=== PATIENT | male | born 1950 | race Caucasian/White ===

== ENCOUNTER 2017-11-28 13:31 | Outpatient (CLI) | payer MEDICARE, BC ==
[2017-11-28] MEDS ORDERED: ISOVUE-370 76%-LOCM 1 ML ONE (16:11)
== END 2017-11-28 13:32 | disposition home or self-care (01) ==
LOC: BICCT 13:31
PROVIDERS: ATTEND Thoracic Surgery (Cardiothoracic Vascular Surgery)
DX: I71.4 Abdominal aortic aneurysm, without rupture (principal)
CPT/HCPCS: 72191

== ENCOUNTER → 2020-01-14 | Day surgery (SDC) | payer MEDICARE, BC ==
[~2020-01-14] MED LIST: Iopamidol 370 76% 100 ML VIAL ONE; Iopamidol 370 76% 50 ML VIAL FS ONE
[2020-01-14 08:29] LABS: Estimated GFR-MDRD - POC Greater than 90
--- NOTE | 2020-01-14 10:01 | CT ---
CT neck soft tissues with and without contrast: 01/14/2020 HISTORY: 69-year-old male with ICD-10: E 83.52, hypercalcemia E 21.3, hyperparathyroidism, unspecified TECHNIQUE: IV contrast: 120 mL [id number]. Precontrast, 25 second delayed postcontrast, and 65 second delayed postcontrast, scans performed from 5 cm inferior to gaudencio to mid maxillary sinus level. Coronal and sagittal reconstructions. FINDINGS: There is enlargement of the right lobe, and especially of the left lobe, of the thyroid gland, by mul tiple nodules. There is actual calculation of a right-sided thyroid nodule. The enlarged left lobe could be one large thyroid nodule or multiple, and the left lobe measures approximately 5 x 4.5 x 6.5 cm, and it chronically distorts and slightly displaces to the right, the upper esophagus. The bilateral thyroid lobe enlargement narrows the transverse dimension of the trachea mildly, and the tr achea is displaced to the right.. There has been no interval change overall regarding these thyroid masses compared to CT of neck of 07/03/2015 from [facility]. On that 07/03/2015 CT, in retrospect, there is an approximately 0.4 x 0.4 x 0.8 cm enhancing round no dule abutting the posterior surface of the cricopharyngeus muscle (prior axial image 78 of 115, series 3; coronal image 55 of 115, series 8040; prior sagittal image 47 of 103, series [address] [facility]). (The location of this nodule relative to the long axis of the larynx is at midline. However, because of the chronic mass effect caused by the large left goiter, the orien tation of the larynx, and consequently the cricopharyngeus muscle, is rotated clockwise as seen on axial images. The result is that this nodule is to the right of midline relative to the cervical spin e at approximately the C5 level). By the time of the 10/25/2019 CT at [facility] (now [facility] that nodule had involuted, and it remains tiny on the current CT, currently measuring 0.2 x 0.4 x 0.6 cm (axial images 74 of 254, series 3 and 74 of 127 series 5; coronal images 76 of 173 series 60 4 and 76 of 173 series 601; and sagittal image 87 of 180 series 605). There are no other candidates for parathyroid adenoma. There is a large 1.3 x 1.1 x 0.9 cm calculus in the right submandibular space, with little or no righ t submandibular gland parenchyma. This is unchanged since 2015. Left submandibular gland is normal. IMPRESSION: 1.) Evidence for tiny parathyroid adenoma abutting the posterior surface of the cricopharyngeus muscl e. This has become smaller since 2015. 2) large right submandibular gland sialolith with little or no associated right submandibular gland t issue. 3) multinodular goiter
--- NOTE | 2020-01-14 13:25 | NM ---
Radionucleotide parathyroid scan HISTORY: Hypercalcemia. Hyperparathyroidism. FINDINGS: Physiologic uptake of radiotracer within the thyroid gland and salivary glands, with the ex ception of marked asymmetry of the submandibular glands, due to severe atrophy of the right thyroid gland, as detailed on recent CT. On the delayed images, no pathologic areas of residual sestamibi uptake are apparent at the thyroid b ed or upper mediastinum. Particular attention was paid to the posterior margin of the right cricopharyngeus muscle, where a nodule has decreased in size on recent CT. IMPRESSION : No scintigraphic evidence of parathyroid adenoma.
== END ==
LOC: CT 07:11
PROVIDERS: ATTEND Otolaryngology Plastic Surgery within the Head & Neck
DX: E21.3 Hyperparathyroidism, unspecified (principal); E04.2 Nontoxic multinodular goiter; K11.5 Sialolithiasis
CPT/HCPCS: 70492; 78072; 82565; A9500; Q9967

== ENCOUNTER 2020-05-02 10:20 | Outpatient (CLI) | payer MEDICARE, BC ==
--- NOTE | 2020-05-02 11:30 | ULT ---
Thyroid sonogram HISTORY: Thyroid mass. COMPARISON: 03/08/2014. FINDINGS: On today's exam, the right thyroid lobe is 5.8 cm length. A partially calcified 1.8 cm nodu le in the central aspect of the right thyroid lobe correlates with the CT findings. It is unchanged in appearance from the prior sonogram. CT appearance is also stable compared to exams back to 2013. Isthmus is 0.5 cm thick. Left thyroid lobe measures up to 8.1 cm, with a heterogeneous echotexture and a dominant circumscribe d heterogeneous mass that measures up to 7.4 cm greatest length. When correlated directly to the prior study, the appearance and size are unchanged. IMPRESSION : Multinodular goiter. The dominant masses are stable in sonographic appearance back to 03/08/2014 sonog lilliam.
== END 2020-05-02 10:21 | disposition home or self-care (01) ==
LOC: BICULT 10:20
PROVIDERS: ATTEND Otolaryngology Plastic Surgery within the Head & Neck
DX: E04.2 Nontoxic multinodular goiter (principal); E07.9 Disorder of thyroid, unspecified
CPT/HCPCS: 76536